=== PATIENT | female | born 1985 | race Caucasian/White ===

== ENCOUNTER → 2016-12-09 | Outpatient (CLI) | payer MEDICAID ==
--- NOTE | 2016-12-09 18:27 | CPEEG ---
[f rep st] ELECTROENCEPHALOGRAM 4-HOUR VIDEO EEG. DATE OF STUDY: 12/09/2016 DATE OF INTERPRETATION: December 09, 2016. INTERPRETATION: This 4-hour video EEG recording is abnormal due to the presence of generalized atypical spike and wave discharges. 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 During the video EEG monitoring session, the patient did not have any clinical events. REPORT: This 4-hour video EEG contains 9-10 Hz alpha activity to the posterior head regions. At baseline, the patient had bursts of generalized atypical spike and wave discharges. These discharges were disorganized at times with poly frequency activity. Other discharges had well-defined spike and wave discharges embedded within a poly frequency burst. There was no additional activation with photic stimulation or hyperventilation. The patient intermittently became drowsy and fell asleep during the study. During drowsiness and sleep, there was additional activation of generalized atypical spike and wave discharges. In addition, there were some sharply contoured wave forms of uncertain clinical significance over the left temporal head region. There were no definite abnormal focal epileptogenic abnormalities. There were no clinical events recorded during the video EEG monitoring session. I attempted to call the patient multiple times to give her these results immediately after interpretation. However, her phone number lead to an automated message that the "number is no longer in service". /[id number]/MODL MTDD
== END ==
LOC: FCPNEURO 09:09
PROVIDERS: ATTEND Psychiatry & Neurology Neurology
DX: R90.81 Abnormal echoencephalogram (principal)